=== PATIENT | female | born 1930 | race Caucasian/White ===

== ENCOUNTER 2016-09-10 07:13 | Outpatient (CLI) | payer MEDICARE ==
[2016-09-10 08:28] LABS: Bilirubin Negative (Negative); Blood, Urine Negative (Negative); Glucose, Urine (Dipstick) Negative (Negative); Ketone, Urine Negative (Negative); Nitrite Negative (Negative); Protein, Urine (Dipstick) Negative (Neg-Trace); Urobilinogen 0.2 mg/dL (0.2-1.0)
[2016-09-10 08:33] LABS: Bacteria/HPF Rare-Few HPF (None Seen); RBC/HPF None Seen HPF (0-3); Squamous Epithelial 0-3 HPF (0-3); Transitional Epithelial 0-3 HPF (0-3); WBC/HPF 0-3 HPF (0-3)
[2016-09-10 08:57] LABS: #Basophils 0.1 thou/uL (0.0-0.2); #Lymphocytes 2.2 thou/uL (1.20-3.40); #Monocytes 0.6 thou/uL (0.11-0.59); #Neutrophils 5.9 thou/uL (1.40-6.50); %Basophils 1.2 % (0.0-1.0); %Lymphocytes 25.5 % (21.0-51.0); %Monocytes 6.2 % (0.0-10.0); Hematocrit 40.2 % (36.0-47.0); Mean Platelet Volume 6.8 fL (7.4-10.4); Red Blood Cell (RBC) Count 4.61 mill/uL (4.20-5.40); White Blood Cell (WBC) Count 8.8 thou/uL (4.8-10.8)
[2016-09-10 09:04] LABS: ALT (SGPT) 44 U/L (0-55); AST (SGOT) 79 U/L (5-34); Alkaline Phosphatase 52 U/L (40-150); Anion Gap 13 mmol/L (10-20); BUN (Urea Nitrogen) 15 mg/dL (9.8-20.1); Bilirubin, Direct 0.5 mg/dL (0.1-0.3); Bilirubin, Total 0.9 mg/dL (0.2-1.2); Calc. Creatinine Clearance 0 mL/min (70-130); Calcium 9.2 mg/dL (7.8-10.44); Carbon Dioxide 24 mmol/L (23-31); Chloride 105 mmol/L (98-107); Estimated GFR-MDRD 65; LDL Cholesterol, Calculated 39 mg/dL; Protein, Total 7.5 g/dL (5.8-8.1)
[2016-09-10 09:23] LABS: Free T3 2.66 pg/mL (1.71-3.71)
== END 2016-09-10 07:14 | disposition home or self-care (01) ==
LOC: NAV LAB 07:13
PROVIDERS: ATTEND Family Medicine
DX: E03.8 Other specified hypothyroidism (principal); R60.0 Localized edema; M06.9 Rheumatoid arthritis, unspecified; E78.2 Mixed hyperlipidemia; B18.2 Chronic viral hepatitis C; R30.0 Dysuria
CPT/HCPCS: 36415; 80048; 80061; 80076; 81001; 84439; 84443; 84481; 85025